=== PATIENT | female | born 1945 | race Two or more races ===

== ENCOUNTER 2016-02-18 11:44 | Inpatient (IN) | payer OTHER ==
[2016-02-18 12:49] VITALS: BMI 28.3
[2016-02-18] MEDS ORDERED: ACETAMINOPHEN 500 MG TABLET (FP) PO ONE (14:36)
[2016-02-18] MEDS ORDERED: SODIUM CHLORIDE 0.9% 1000 ML INFUS.BAG IV STA (14:39)
[2016-02-18] MEDS ORDERED: ACETAMINOPHEN 500 MG TABLET (FP) ONE (15:21)
--- NOTE | 2016-02-18 15:23 | PDOC ---
History of Present Illness - General Chief Complaint: Rash Stated Complaint: PCP SENT, RASH ON BOTH LEGS Time Seen by Provider: 02/18/16 13:54 History Source: Patient Exam Limitations: No Limitations - History of Present Illness Initial Comments: 02/18/16 15:17 70 yr female sent to ER for admission by to Dr. Emiliano Roberts. Pt has hitory of DM, high cholesterol, HTN presents with fever for 4 days 102, 102 max at home , redness to elbows with swelling and bite zuñiga to lower ankles and right knee. Pt denies exposure to any insect bites, no sick contacts or foreign travel. Pt has cough since 02/10/16. Denies abd pain denies sore throat or eye pain, no discharge. 02/18/16 17:26 Severity: Yes: moderate Location: reports: extremities Respiratory Risk Factors: reports: no cause identified Associated Symptoms: reports: fever, malaise, rash Past History - Past Medical History Allergies/Adverse Reactions: Allergies Allergy/AdvReac Type Severity Reaction Status Date / Time No Known Allergies Allergy Verified 02/18/16 12:44 Home Medications: Ambulatory Orders Amlodipine Besylate/Benazepril [Lotrel 5-40 mg Capsule] 1 each PO DAILY #0 capsule 05/07/12 Aspirin [ASA -] 81 mg PO DAILY #0 tab.chew 05/07/12 Metformin HCl [Glucophage -] 500 mg PO BID #0 02/20/16 Acetaminophen [Tylenol -] 1,000 mg PO Q6H 02/21/16 Diabetes: Yes HTN: Yes Hypercholesterolemia: Yes Suicide Attempt (Hx): No - Surgical History Cholecystectomy: Yes - Family Disease History Comment:: 02/18/16 15:20 none known - Psycho/Social/Smoking Cessation Hx Anxiety: No Suicidal Ideation: No Smoking Status: No Smoking History: Never smoked Number of Cigarettes Smoked Daily: 0 Hx Alcohol Use: No Drug/Substance Use Hx: No Substance Use Type: None Review of Systems - Review of Systems Able to Perform ROS?: Yes Is the patient limited Belarusian proficient: No Constitutional: Yes: Symptoms Reported, Fever HEENTM: No: Symptoms Reported Respiratory: Yes: Symptoms reported, Cough Cardiac (ROS): No: Symptoms Reported Integumentary: Yes: Symptoms Reported, See HPI, Rash Neurological: No: Symptoms reported *Physical Exam - Vital Signs Last Vital Signs Temp Pulse Resp BP Pulse Ox 100 F H 99 H 18 158/80 98 02/18/16 12:44 02/18/16 12:44 02/18/16 12:44 02/18/16 12:44 02/18/16 12:44 - Physical Exam General Appearance: Yes: Nourished, Appropriately Dressed HEENT: positive: EOMI, [place]RA[place], Normal ENT Inspection, TMs Normal, Pharynx Normal, Other (neg conunctival erythema ) Neck: positive: Supple. negative: Tender, Stridor Respiratory/Chest: positive: Lungs Clear, Normal Breath Sounds. negative: Respiratory Distress Cardiovascular: positive: Regular Rhythm, Regular Rate Gastrointestinal/Abdominal: positive: Normal Bowel Sounds, Soft Musculoskeletal: positive: Normal Inspection Extremity: positive: Normal Capillary Refill, Normal Inspection, Normal Range of Motion, Erythema (bilateral elbows ) Integumentary: positive: Rash Neurologic: positive: Fully Oriented, Alert, Normal Mood/Affect, Normal Response , Motor Strength 5/5 Heart Score/ECG Review - ECG Intrepretation Rhythm: Regular Rhythm - ECG Impressions Normal ECG: Yes Comment:: 02/18/16 17:36 signed by ER attending, NSR no chest pain or SOB ED Treatment Course - LABORATORY CBC & Chemistry Diagram: 02/20/16 01:00 02/18/16 20:00 - RADIOLOGY Radiology Studies Ordered: Category Date Time Status CHEST X-RAY PORTABLE* [RAD] Stat Radiology 02/18/16 14:39 Ordered Medical Decision Making - Medical Decision Making 02/18/16 15:21 cc: fever, chills, erythematous multiple small pinpoint erythematous zuñiga to bilateral ankles, feet elbows with maculopapular pinpoint erythematous zuñiga , no abscess feels feverish and chills will check labs 02/18/16 16:34 will admit to , Amir 02/18/16 17:07 discussed with will admit. will consult and . 02/18/16 17:25 case discussed with in Main ER, EKG NSR . Aware of troponin 0.25. no STEMI. EKG nsr, pt has no chest pain . 02/18/16 17:25 spoke with will consult on the patient. 02/18/16 17:34 02/18/16 17:36 02/18/16 18:34 *DC/Admit/Observation/Transfer Diagnosis at time of Disposition: Fever Qualifiers: Fever type: unspecified Qualified Code(s): R50.9 - Fever, unspecified - Discharge Dispostion Disposition: HOME Admit: Yes - Referrals
[2016-02-18 15:40] LABS: BASOPHIL 0.6 % (0-2.0); EOSINOPHIL 0.6 % (0-4.5); MCH 28.3 pg (25.7-33.7); MCHC 32.7 g/dl (32.0-36.0); MEAN CELL VOLUME 86.6 fl (80-96); MEAN PLT VOLUME 9.6 fl (7.5-11.1); NEUTROPHILS 76.5 % (42.8-82.8); PLATELET COUNT 336 K/MM3 (134-434); RDW 13.1 % (11.6-15.6); WHITE BLOOD COUNT 9.5 K/mm3 (4.0-10.0)
[2016-02-18 15:55] LABS: URINE APPEARANCE CLEAR; URINE BILIRUBIN NEGATIVE (NEGATIVE); URINE COLOR YELLOW; URINE GLUCOSE (UA) NEGATIVE (NEGATIVE); URINE KETONE TRACE (NEGATIVE); URINE LEUK ESTERASE NEGATIVE (NEGATIVE); URINE NITRITE NEGATIVE (NEGATIVE); URINE PROTEIN NEGATIVE (NEGATIVE); URINE UROBILINOGEN 2.0 E.U/dl E.U./dl (0.2-1.0)
[2016-02-18 16:03] LABS: INR 1.33 (0.82-1.09); PROTHROMBIN TIME (PATIENT) 14.7 SEC (9.98-11.88)
[2016-02-18 16:06] LABS: ACTIVATED PTT 27.3 SECONDS (26.9-34.4)
[2016-02-18 16:08] LABS: URINE BLOOD 1+ (NEGATIVE)
[2016-02-18 16:12] LABS: ALBUMIN 3.3 g/dl (3.4-5.0); ANION GAP 12 (8-16); BILIRUBIN,TOTAL 0.7 mg/dL (0.2-1.0); C-REACTIVE PROTEIN 7.1 MG/DL (0.00-0.3); CALCIUM 8.3 mg/dL (8.5-10.1); CO2 26 mmol/L (21-32); CREATININE 0.5 mg/dL (0.55-1.02); GLUCOSE,RANDOM 128 mg/dL (74-106); SGOT/AST 34 U/L (15-37); SGPT/ALT 73 U/L (12-78); TOT PROT 7.2 g/dl (6.4-8.2)
[2016-02-18 16:14] LABS: URINE MUCUS RARE; URINE RBC 2 /hpf (0-3); URINE WBC 1 /hpf (3-5)
[2016-02-18 16:15] LABS: ALK PHOS 157 U/L (45-117); TROPONIN I 0.25 ng/ml (0.00-0.05)
[2016-02-18] MEDS ORDERED: methylPREDNISolone NA SUCC 125 MG/2 ML VIAL IVPB ONE (17:03)
[2016-02-18] MEDS ORDERED: methylPREDNISolone NA SUCC 40 MG/1 ML VIAL IVPB ONE (17:08)
[2016-02-18] MEDS ORDERED: diphenhydrAMINE HCL 25 MG CAPSULE (FP) PO PRN (18:27)
[2016-02-18] MEDS ORDERED: ALBUTEROL SO4 2.5/IPRATROPIUM 0.5 INH SOL 3 ML VIAL.NEB. NEB PRN (18:29)
[2016-02-18] MEDS ORDERED: LEVOFLOXACIN 500 MG IVPB 100 ML IVPB SCH (18:30)
[2016-02-18] MEDS ORDERED: LEVOFLOXACIN 500 MG IVPB 100 ML IVPB ONE (18:34)
[2016-02-18] MEDS ORDERED: methylPREDNISolone NA SUCC 40 MG/1 ML VIAL ONE (18:34)
[2016-02-18 20:46] LABS: ALBUMIN 2.6 g/dl (3.4-5.0); ANION GAP 9 (8-16); BILIRUBIN,TOTAL 0.6 mg/dL (0.2-1.0); CALCIUM 7.5 mg/dL (8.5-10.1); CO2 26 mmol/L (21-32); CREATININE 0.5 mg/dL (0.55-1.02); GLUCOSE,RANDOM 247 mg/dL (74-106); SGOT/AST 30 U/L (15-37); SGPT/ALT 62 U/L (12-78); TOT PROT 6.1 g/dl (6.4-8.2)
[2016-02-18 20:48] LABS: ALK PHOS 134 U/L (45-117); TROPONIN I 0.23 ng/ml (0.00-0.05)
[2016-02-19] MEDS ORDERED: methylPREDNISolone NA SUCC 40 MG/1 ML VIAL IVPB SCH (02:00)
--- NOTE | 2016-02-19 09:08 | PN ---
Progress Note, Physician Chief Complaint: ID Febrile over the last week with polyarticuliar joint pains and areas of erythema in the shins and elbows. Known diabetic and Hypertensive No travel HIV risks couph Had sweats fever and nausea at home. No abd pain - Current Medication List Current Medications: Active Medications Acetaminophen (Tylenol -) 650 mg PO Q6H PRN PRN Reason: FEVER OR PAIN Albuterol/Ipratropium (Duoneb -) 1 amp NEB Q6H PRN PRN Reason: SHORTNESS OF BREATH Amlodipine Besylate (Norvasc -) 5 mg PO DAILY [facility] Diphenhydramine HCl (Benadryl -) 25 mg PO Q6H PRN PRN Reason: FOR ITCHING Levofloxacin (Levaquin 500 Mg Premixed Ivpb -) 100 mls @ 100 mls/hr IVPB DAILY [facility] Last Admin: 02/18/16 18:50 Dose: 100 mls/hr Methylprednisolone Sodium Succinate (Solu-Medrol -) 40 mg IVPB Q8H-IV [facility] Last Admin: 02/19/16 01:35 Dose: 40 mg Valsartan (Diovan -) 160 mg PO DAILY [facility] - Objective Vital Signs: Vital Signs Temperature 98.4 F 02/19/16 06:00 Pulse Rate 72 02/19/16 06:00 Respiratory Rate 20 02/19/16 06:00 Blood Pressure 155/84 02/19/16 06:00 O2 Sat by Pulse Oximetry (%) 97 02/18/16 21:10 Constitutional: Yes: Well Nourished, No Distress Neck: Yes: WNL, Supple Cardiovascular: Yes: S1, S2. No: Murmur Respiratory: Yes: WNL, Regular, CTA Bilaterally Gastrointestinal: Yes: Soft Integumentary: Yes: Other (Tneder raised plaques shinls elbow symmetrically) Labs: CBC, BMP 02/18/16 20:00 INR, PTT INR 1.33 (0.82-1.09) H 02/18/16 15:10 Problem List - Problems (1) Erythema nodosum Code(s): L52 - ERYTHEMA NODOSUM (2) Fever Code(s): R50.9 - FEVER, UNSPECIFIED Qualifiers: Fever type: unspecified Qualified Code(s): R50.9 - Fever, unspecified Assessment/Plan Laboratory Tests 0102/18/16 02/18/16 15:10 15:10 15:10 WBC 9.5 D Hgb 13.3 D Plt Count 336 D ESR INR 1.33 H Creatinine Creat Clearance w eGFR Random Glucose AST ALT Alkaline Phosphatase C-Reactive Protein Urine RBC 2 Urine WBC 1 02/18/16 02/18/16 02/18/16 15:10 15:10 20:00 WBC Hgb Plt Count ESR 77 H INR Creatinine 0.5 L Creat Clearance w eGFR > 60 Random Glucose 247 H D AST 30 ALT 62 Alkaline Phosphatase 157 H 134 H C-Reactive Protein 7.1 H Urine RBC Urine WBC Assessment Erythema Nodosum with fever Pulmonary adenopathy Consider Sarcoidosis Plan Stop all antibiotics and steroids for now Rheumatology evaluation Pulmonary evaluation Luana DUNN
[2016-02-19] MEDS ORDERED: POTASSIUM CHLORIDE TABS 20 MEQ TABLET.ER (FP) PO ONE (09:47)
--- NOTE | 2016-02-19 09:56 | HP ---
Admitting History and Physical - Primary Care Physician PCP: Sarthak Roberts - Admission Chief Complaint: FEVER/RASH/PULM INFILTRATE History of Present Illness: SENT FROM [facility] PMD DR GRAHAMS FFICE FOR FEVER/RASH/COUGH, FOUND TO HAVE INFILTRATE VS EFFUSSION ON CXR, CT SCAN LUNGS SHOWS NODULES R/O SARCOIDOSIS. History Source: Patient - Past Medical History Cardiovascular: Yes: HTN Pulmonary: Yes: Asthma - Smoking History Smoking history: Never smoked Aproximately how many cigarettes per day: 0 - Alcohol/Substance Use Hx Alcohol Use: No Home Medications - Allergies Allergies/Adverse Reactions: Allergies Allergy/AdvReac Type Severity Reaction Status Date / Time No Known Allergies Allergy Verified 02/18/16 12:44 - Home Medications Home Medications: Ambulatory Orders Amlodipine Besylate/Benazepril [Lotrel 5-40 mg Capsule] 1 each PO DAILY #0 capsule 05/07/12 Aspirin [ASA -] 81 mg PO DAILY #0 tab.chew 05/07/12 Metformin HCl [Glucophage -] 500 mg PO BID 02/18/16 Review of Systems Findings/Remarks: AWAKE ALERT MILD DISTRESS - Review of Systems Constitutional: reports: Malaise Eyes: reports: No Symptoms HENT: reports: No Symptoms Neck: reports: No Symptoms Cardiovascular: reports: No Symptoms Respiratory: reports: Cough, SOB Gastrointestinal: reports: No Symptoms Genitourinary: reports: No Symptoms Musculoskeletal: reports: Joint Pain, Muscle Weakness Integumentary: reports: Erythema, Rash Neurological: reports: No Symptoms Endocrine: reports: No Symptoms Hematology/Lymphatic: reports: No Symptoms Psychiatric: reports: No Symptoms Physical Examination Vital Signs: Vital Signs Temperature 97.1 F L 02/19/16 09:39 Pulse Rate 71 02/19/16 09:39 Respiratory Rate 20 02/19/16 09:39 Blood Pressure 153/77 02/19/16 09:39 O2 Sat by Pulse Oximetry (%) 97 02/18/16 21:10 Constitutional: Yes: Mild Distress Eyes: Yes: WNL HENT: Yes: WNL Neck: Yes: WNL Cardiovascular: Yes: WNL Respiratory: Yes: WNL Gastrointestinal: Yes: WNL Renal/: Yes: WNL Musculoskeletal: Yes: Joint Stiffness, Muscle Weakness Extremities: Yes: Erythema Edema: No Peripheral Pulses WNL: Yes Integumentary: Yes: Rash Wound/Incision: Yes: Dressing Dry and Intact, Dressing Removed Neurological: Yes: WNL ...Motor Strength: LLE, RLE Psychiatric: Yes: WNL Labs: CBC, BMP 02/18/16 20:00 Imaging - Results Chest X-ray: Report Reviewed Cat Scan: Report Reviewed Problem List - Problems (1) Erythema nodosum Code(s): L52 - ERYTHEMA NODOSUM (2) Fever Code(s): R50.9 - FEVER, UNSPECIFIED Qualifiers: Fever type: unspecified Qualified Code(s): R50.9 - Fever, unspecified (3) Acute arthritis Code(s): M19.90 - UNSPECIFIED OSTEOARTHRITIS, UNSPECIFIED SITE (4) Lung abnormality Assessment/Plan: CT SCAN + NODULES VS NEOPLASM?? PULMONARY EVAL Code(s): J98.4 - OTHER DISORDERS OF LUNG Assessment/Plan BLOOD AND URINE CULTURES ESR/CRP ELEVATED ERYTHEMA NODOSUM VA AUTO IMMUNE VASCULITIS RHEUMATOLOGY EVAL STEROIDS IV PAIN CONTROL IV ABX PULM NODULES--- SARCOIDOSIS VS OTHER PULMONARY EVAL
[2016-02-19] MEDS ORDERED: amLODIPine BESYLATE 5 MG TABLET (FP) PO SCH (10:00)
[2016-02-19] MEDS: VALSARTAN 160 MG TABLET (UD) PO SCH (10:00)
--- NOTE | 2016-02-19 10:24 | CONS ---
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 She has no history of recent travel, and in the emergency room was treated with Levaquin and Solu-Medrol for possible pneumonia and/or inflammatory disease. She has previously had some diarrhea earlier in the week associated with abdominal discomfort and nausea, but this has mostly subsided. She notes that she recently had a steroid injection in her left knee by Dr. Rouse for osteoarthritis. She has no history of rheumatoid arthritis and denies any cough, shortness of breath, diarrhea currently, or joint swelling. She works in the [employer] and has no history of recent travel. She lives with her , for 50 years. No one at home is sick. A CAT scan of the chest was obtained to evaluate some atelectasis and/ or infiltrate seen on chest x-ray. This showed no infiltrate but some small pulmonary nodules and small mediastinal lymph nodes. PAST MEDICAL HISTORY: As noted above. MEDICATIONS: 1. Amlodipine. 2. Aspirin. 3. Percocet p.r.n. ALLERGIES: None known. SOCIAL HISTORY: Never smoked, no history of substance abuse. HIV status unknown. FAMILY HISTORY: Reviewed and noncontributory. REVIEW OF SYSTEMS: Respiratory: No cough, shortness of breath, hemoptysis. Cardiac: No chest pain, palpitations, murmur. Gastrointestinal: Previous abdominal discomfort with nausea and diarrhea, now subsided. Genitourinary: No dysuria, hematuria, urinary frequency. PHYSICAL EXAMINATION: General: She was an alert female. Vital Signs: Her temperature max was 100, pulse 99, respirations 18, blood pressure 158/80, oximetry 98%. Neck: Supple, without adenopathy. Lungs: Clear to P and A. Heart: S1, S2, regular rhythm without audible murmur or gallop. Abdomen: Positive bowel sounds, soft, nontender, without hepatosplenomegaly. Extremities: Reveal raised nodules on the lower shins bilaterally, with similar raised nodules above the left knee and both elbows. No joint swelling was noted. LABORATORY: The white count was 9.5, hemoglobin 13.3, platelets of 336, sedimentation rate of 77, INR 1.3, BUN 7, creatinine 0.5, glucose 247, alkaline phosphatase 134. CRP is 7.1. Urine with 2 RBCs, [address] scan was reviewed, shows bilateral pulmonary nodules measuring up to 9 mm, with mediastinal lymph nodes measuring up to 1.2 cm, rule out malignancy per the note. Enlarged mnan. ASSESSMENT: A 69-year-old female, diabetic, presents with fever and clinical findings consistent with erythema nodosum. Etiology of erythema nodosum at this point unclear; however, given the adenopathy with pulmonary nodules, the possibility of sarcoidosis is considered. At this point I would not cloud the picture by giving her corticosteroids and antibiotics. She should have a rheumatology consult and a pulmonary consult to see her with regard to the mediastinal lymph nodes and nodules and assess the need for possible mediastinal lymph node biopsy. 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 SIGRID DELGADO M.D. [id number] MTDD
--- NOTE | 2016-02-19 11:03 | EKG ---
Test Reason : Blood Pressure : / mmHG Vent. Rate : 074 BPM Atrial Rate : 074 BPM P-R Int : 152 ms QRS Dur : 074 ms QT Int : 378 ms P-R-T Axes : 010 023 010 degrees QTc Int : 419 ms NORMAL SINUS RHYTHM NORMAL ECG WHEN COMPARED WITH ECG OF 18-NOV-2009 10:34, NO SIGNIFICANT CHANGE WAS FOUND Confirmed by ROXI FORBES MD ([id number]) on 02/19/2016 11:03:19 AM Referred By: Confirmed By:ROXI FORBES MD
--- NOTE | 2016-02-19 15:10 | PN ---
Progress Note (short form) - Note Progress Note: PULMONARY CONSULTATION DICTATED 02/19/16 IMP LIKELY SARCOIDOSIS ,+MEDIASTINAL ADENOPATHY,BILATERAL PULMONARY NODULES, ERYTHEMA NODOSUM,R/O INFECTIOUS,RHEUMATOLOGIC,VASCULITIS HTN DM PLAN SEROLOGY,BRITNEY LEVEL THORACIC SURGERY EVALUATION FOR POSSIBLE MEDIASTINOSCOPY ANTIBIOTICS PER ID CULTURES DR BRUNNER Problem List - Problems (1) Acute arthritis Code(s): M19.90 - UNSPECIFIED OSTEOARTHRITIS, UNSPECIFIED SITE (2) Erythema nodosum Code(s): L52 - ERYTHEMA NODOSUM (3) Fever Code(s): R50.9 - FEVER, UNSPECIFIED Qualifiers: Fever type: unspecified Qualified Code(s): R50.9 - Fever, unspecified (4) Lung abnormality Code(s): J98.4 - OTHER DISORDERS OF LUNG (5) Mediastinal adenopathy Code(s): R59.0 - LOCALIZED ENLARGED LYMPH NODES (6) Pulmonary nodules/lesions, multiple Code(s): R91.8 - OTHER NONSPECIFIC ABNORMAL FINDING OF LUNG FIELD
--- NOTE | 2016-02-19 16:31 | CONS ---
DATE OF CONSULTATION: 02/19/2016 REFERRING PHYSICIAN: Sarthak Roberts MD The patient is a 70-year-old [place] female. Past medical history of hypertension, mgg-xqmyfuw-xnerjpwym diabetes mellitus, nonsmoker. Admitted to [facility] with complaint of a 1-week history of generalized arthralgias associated with fever, an erythematous rash on both elbows and her lower extremities. The patient denies any recent insect bites. There is no recent travel. In the emergency room, she was treated with Levaquin and Solu-Medrol for possible pneumonia versus inflammatory disease. She underwent a CT scan of the chest which revealed bilateral small pulmonary nodules and a mediastinal adenopathy. She denies any visual disturbances. Denies any history of occupational exposure to chemicals or fumes. Denies any family history of sarcoid, although has a family history of lung cancer. She denies any recent travel. Denied weight loss or night sweats. She denies hemoptysis. PAST MEDICAL HISTORY: Again, includes hypertension, pvq-aiiuaro-iprtbrguo diabetes mellitus. REVIEW OF SYSTEMS: No orthopnea. No PND. No chest pain. No shortness of breath. Positive fever. Positive arthralgias. Positive skin rash. SOCIAL HISTORY: Currently employed at [employer]. Non-smoker. No EtOH. PHYSICAL EXAMINATION: General: The patient is a well-developed, well-nourished female, awake, alert, in no acute distress. Vital Signs: She is currently afebrile; blood pressure is 153/77; respiratory rate is 20; O2 saturation is 97% on room air. HEENT: Exam is normocephalic, atraumatic. Neck: Supple. Heart: Regular S1 and S2. Chest: Clear. Abdomen: Soft. Bowel sounds positive. Extremities: There is a rash noted on the lower extremities as well as around the knee and around the ankles. LABORATORIES: White blood cell count is 9.5, hemoglobin 13.3, hematocrit 40.7, and a platelet count of 336,000; the ESR is 77. INR is 1.33. Electrolytes: Potassium 3.3. Hemoglobin A1c is 6.2. Alkaline phosphatase is 134. CRP is 7.1. UA is positive for heme 1+. Immunologic: MCKAYLA is pending. Lyme screen is pending. Chest CT reveals bilateral pulmonary nodules measuring up to 9 mm with mediastinal lymph nodes measuring up to 1.2 and prominent pulmonary mann. IMPRESSION: Bilateral mediastinal adenopathy, hilar adenopathy, erythema nodosum, generalized rash, and pulmonary nodules. Rule out possible sarcoidosis. Rule out other inflammatory etiologies or other rheumatologic etiologies. Rule out possible malignancy. PLAN: Would obtain level, a rheumatologic workup, as well as a thoracic surgical evaluation for mediastinoscopy. RAGHU BRUNNER M.D. JOHANN/[id number]
--- NOTE | 2016-02-19 19:10 | CONSULT ---
Consult - text type - Consultation Consultation Note: Thoracic Surgery Consult: Pt seen/examined. Briefly has an acute febrile presentation with dyspnea and erythema nodosum. PMH/PSH significant for DM, HTN, cholecystectomy. No malignancy hx. Normal colonoscopies. No weight loss or hemoptysis. On PE, normal vitals now, looks well, no palpable lymphadenopathy. CT showed mediastinal adenopathy and bilateral small nodules. Diff Dx: Sarcoid vs. Autoimmune/Inflammarory vs. Metastatic Cancer Plan: - Will defer to consultations by Dr. Avina and Rheumatology (to see tomorrow) ; - If recommended, will offer c-med and/or lung biopsy--she is good candidate for both. - I have spent 40 minutes on this consultation with >50% of this involving counseling and coordination of care including reviewing h/p, imaging, and discussion with other physicians.
[2016-02-19] MEDS: ACETAMINOPHEN 325 MG TABLET (FP) PO PRN (22:26)
[2016-02-19 22:37] LABS: TROPONIN I 0.17 ng/ml (0.00-0.05)
[2016-02-20 00:40] LABS: VENOUS BLOOD GAS HCO3 24.8 meq/L (22-29); VENOUS PH 7.48 (7.31-7.41)
[2016-02-20 01:15] LABS: BASOPHIL 0.5 % (0-2.0); EOSINOPHIL 0.6 % (0-4.5); MCH 28.4 pg (25.7-33.7); MCHC 32.5 g/dl (32.0-36.0); MEAN CELL VOLUME 87.3 fl (80-96); MEAN PLT VOLUME 9.8 fl (7.5-11.1); NEUTROPHILS 81.5 % (42.8-82.8); PLATELET COUNT 371 K/MM3 (134-434); WHITE BLOOD COUNT 10.9 K/mm3 (4.0-10.0)
[2016-02-20] MEDS ORDERED: cefTRIAXone 1 GM/50 ML BAG (PRE-DOCKED) IVPB ONE (01:15)
[2016-02-20 02:16] LABS: ERYTHROCYTE SEDIMENTATION RATE 43 mm/hr (0-30)
[2016-02-20] MEDS: amLODIPine BESYLATE 5 MG TABLET (FP) PO ONE ×2 (02:37→02:51)
[2016-02-20] MEDS: ACETAMINOPHEN 325 MG TABLET (FP) PO PRN (06:06)
--- NOTE | 2016-02-20 08:56 | PN ---
Physical Exam: SUBJECTIVE: Patient seen and examined at bed side this morning. No new complaints this am. Feels good. Overnight, patient said she had fever+ associated with sweating, no chills/rigors, was given tylenol with relief. Bowel /Bladder habit normal. Sleep disturbed. Appetite Normal. OBJECTIVE: Vital Signs Period Temp Pulse Resp BP Sys/Alonzo Pulse Ox Last 24 Hr 97.1 F-99.2 F 71-93 14-20 127-153/77-86 97-98 GENERAL: The patient is awake, alert, and fully oriented, in no acute distress. HEAD: Normal with no signs of trauma. EYES: PEERLA, EOM intact, no pallor or icterus. ENT: Ears normal NECK: Supple. LUNGS: Breath sounds equal, clear to auscultation bilaterally, no wheezes, no crackles, no accessory muscle use. HEART: Regular rate and rhythm, S1, S2 without murmur, rub or gallop. ABDOMEN: Soft, nontender, nondistended, normoactive bowel sounds, no guarding, no rebound, no hepatosplenomegaly, no masses. EXTREMITIES: 2+ pulses, warm, well-perfused, no edema. NEUROLOGICAL: Cranial nerves II through XII grossly intact. Normal speech, gait normal. PSYCH: Normal mood, normal affect. SKIN: Tender, reddish, nodular lesions over the lower extremities and B/L elbows. Warm, dry, normal turgor. Laboratory Results - last 24 hr 02/19/16 02/19/16 02/19/16 10:00 11:45 17:15 WBC RBC Hgb Hct MCV MCHC RDW Plt Count MPV Neutrophils % Lymphocytes % Monocytes % Eosinophils % Basophils % ESR VBG pH POC VBG pCO2 POC VBG pO2 POC Glucometer 228 216 Hemoglobin A1c % 6.2 H D Creatine Kinase Troponin I C-Reactive Protein 02/19/16 02/20/16 02/20/16 22:00 00:00 00:35 WBC RBC Hgb Hct MCV MCHC RDW Plt Count MPV Neutrophils % Lymphocytes % Monocytes % Eosinophils % Basophils % ESR VBG pH 7.48 H POC VBG pCO2 33.3 L POC VBG pO2 67.0 H POC Glucometer Hemoglobin A1c % Creatine Kinase 66 Troponin I 0.17 H C-Reactive Protein 4.6 H D 01/05/17 01/05/17 01/05/17 01:00 03:52 06:18 WBC 10.9 H RBC 4.46 Hgb 12.7 Hct 39.0 MCV 87.3 MCHC 32.5 RDW 13.0 Plt Count 371 MPV 9.8 Neutrophils % 81.5 Lymphocytes % 10.9 D Monocytes % 6.5 Eosinophils % 0.6 Basophils % 0.5 ESR 43 H VBG pH POC VBG pCO2 POC VBG pO2 POC Glucometer 129 148 Hemoglobin A1c % Creatine Kinase Troponin I C-Reactive Protein Active Medications Generic Name Dose Route Start Last Admin Trade Name Freq PRN Reason Stop Dose Admin Acetaminophen 650 mg 02/18/16 18:27 02/20/16 06:06 Tylenol - PO 650 mg Q6H PRN Administration FEVER OR PAIN Albuterol/Ipratropium 1 amp 02/18/16 18:29 Duoneb - NEB Q6H PRN SHORTNESS OF BREATH Amlodipine Besylate 10 mg 02/20/16 10:00 Norvasc - PO DAILY SHERIDAN Diphenhydramine HCl 25 mg 02/18/16 18:27 Benadryl - PO Q6H PRN FOR ITCHING Valsartan 160 mg 02/19/16 10:00 02/19/16 10:00 Diovan - PO 160 mg DAILY SHERIDAN Administration 02/18/2016 CT Chest: Bilateral pulmonary nodules measuring upto 9mm. Mediastinal lymph nodes measuring up to 1.2 cm. R/O Malignancy. ASSESSMENT/PLAN: 70 year old female with significant past medical history of HTN, HLD presented to the ED with cough/rash/fever. # Fever/cough/rash- Possible Sarcoidosis -Tmax- 100 F -Cough resolved -Rash still persists -CT chest report mentioned above - Clinical symptoms and Chest CT- suggestive of possible Sarcoidosis - Plan: Biopsy of lymph nodes - Currently off antibiotics and steroids # FEN -Not on IV Fluids -Electrolytes WNL -Sodium controlled diet # Prophylaxis - For DVT- Not indicated -For GI-Not indicated Illness, Investigation and plan of care explained to the patient. She verbalized understanding. Case will be discussed with Dr. Craft. Thank you for the consultative opportunity. Visit type - Emergency Visit Emergency Visit: Yes ED Registration Date: 02/18/16 Care time: The patient presented to the Emergency Department on the above date and was hospitalized for further evaluation of their emergent condition. - New Patient This patient is new to me today: No - Critical Care Critical Care patient: No
[2016-02-20] MEDS ORDERED: amLODIPine BESYLATE 10 MG TABLET (FP) PO SCH (10:00)
[2016-02-20] MEDS: VALSARTAN 160 MG TABLET (UD) PO SCH (10:33)
[2016-02-20 10:35] VITALS: TEMP 98.1
--- NOTE | 2016-02-20 10:53 | PN ---
Progress Note, Physician Chief Complaint: ID Nontoxic appearing Minimal fever - Current Medication List Current Medications: Active Medications Acetaminophen (Tylenol -) 650 mg PO Q6H PRN PRN Reason: FEVER OR PAIN Last Admin: 02/20/16 06:06 Dose: 650 mg Albuterol/Ipratropium (Duoneb -) 1 amp NEB Q6H PRN PRN Reason: SHORTNESS OF BREATH Amlodipine Besylate (Norvasc -) 10 mg PO DAILY [facility] Last Admin: 02/20/16 10:33 Dose: 10 mg Diphenhydramine HCl (Benadryl -) 25 mg PO Q6H PRN PRN Reason: FOR ITCHING Valsartan (Diovan -) 160 mg PO DAILY [facility] Last Admin: 02/20/16 10:33 Dose: 160 mg - Objective Vital Signs: Vital Signs Temperature 98.1 F 02/20/16 10:34 Pulse Rate 90 02/20/16 10:34 Respiratory Rate 20 02/20/16 10:34 Blood Pressure 168/90 02/20/16 10:34 O2 Sat by Pulse Oximetry (%) 98 02/19/16 21:00 Constitutional: Yes: Well Nourished, No Distress Neck: Yes: WNL, Lymphadenopathy, Other (Left cervical node nontender) Respiratory: Yes: WNL, Regular, CTA Bilaterally Gastrointestinal: Yes: WNL, Normal Bowel Sounds, Soft Integumentary: Yes: Other (Nodules forearm shins) Labs: CBC, BMP 02/20/16 01:00 02/18/16 20:00 INR, PTT INR 1.33 (0.82-1.09) H 02/18/16 15:10 Problem List - Problems (1) Erythema nodosum Code(s): L52 - ERYTHEMA NODOSUM (2) Fever Code(s): R50.9 - FEVER, UNSPECIFIED Qualifiers: Fever type: unspecified Qualified Code(s): R50.9 - Fever, unspecified Assessment/Plan Microbiology 02/18/16 15:10 Urine - Urine Clean Catch Urine Culture - Final NO GROWTH OBTAINED 02/18/16 15:10 Blood - Peripheral Venous Blood Culture - Preliminary NO GROWTH OBTAINED AFTER 24 HOURS, INCUBATION TO CONTINUE FOR 4 DAYS. 02/18/16 15:10 Blood - Peripheral Venous Blood Culture - Preliminary NO GROWTH OBTAINED AFTER 24 HOURS, INCUBATION TO CONTINUE FOR 4 DAYS. Laboratory Tests 02/20/16 01:00 WBC 10.9 H Hgb 12.7 Hct 39.0 Plt Count 371 Assessment E Nodosum possible Sarcoidosis Need to rule out TB Plan Lymph node biopsy with cultures C/S AFB and Fungi Luana DUNN
--- NOTE | 2016-02-20 11:20 | PN ---
Progress Note, Physician Chief Complaint: AWAKE ALERT NAD AWAITING FOR CTS TO BIOPSY LUNG NODULES - Current Medication List Current Medications: Active Medications Acetaminophen (Tylenol -) 650 mg PO Q6H PRN PRN Reason: FEVER OR PAIN Last Admin: 02/20/16 06:06 Dose: 650 mg Albuterol/Ipratropium (Duoneb -) 1 amp NEB Q6H PRN PRN Reason: SHORTNESS OF BREATH Amlodipine Besylate (Norvasc -) 10 mg PO DAILY [facility] Last Admin: 02/20/16 10:33 Dose: 10 mg Diphenhydramine HCl (Benadryl -) 25 mg PO Q6H PRN PRN Reason: FOR ITCHING Valsartan (Diovan -) 160 mg PO DAILY [facility] Last Admin: 02/20/16 10:33 Dose: 160 mg - Objective Vital Signs: Vital Signs Temperature 98.1 F 02/20/16 10:34 Pulse Rate 90 02/20/16 10:34 Respiratory Rate 20 02/20/16 10:34 Blood Pressure 168/90 02/20/16 10:34 O2 Sat by Pulse Oximetry (%) 98 02/19/16 21:00 Constitutional: Yes: No Distress Eyes: Yes: WNL HENT: Yes: WNL Neck: Yes: WNL Cardiovascular: Yes: WNL Respiratory: Yes: WNL Gastrointestinal: Yes: WNL Genitourinary: Yes: WNL Musculoskeletal: Yes: WNL Extremities: Yes: WNL Edema: No Peripheral Pulses WNL: Yes Integumentary: Yes: Rash Wound/Incision: Yes: Clean/Dry Neurological: Yes: WNL ...Motor Strength: WNL Psychiatric: Yes: WNL Labs: CBC, BMP 02/20/16 01:00 02/18/16 20:00 INR, PTT INR 1.33 (0.82-1.09) H 02/18/16 15:10 Problem List - Problems (1) Erythema nodosum Code(s): L52 - ERYTHEMA NODOSUM (2) Fever Code(s): R50.9 - FEVER, UNSPECIFIED Qualifiers: Fever type: unspecified Qualified Code(s): R50.9 - Fever, unspecified (3) Acute arthritis Code(s): M19.90 - UNSPECIFIED OSTEOARTHRITIS, UNSPECIFIED SITE (4) Lung abnormality Code(s): J98.4 - OTHER DISORDERS OF LUNG Assessment/Plan AWAITING FOR LUG BIOPSY WITH CTS ABX IV PULMONARY AND ID EVAL APPRECIATED OOB TO CHAIR CAN DC HOME AND BIOPSY OUTPATIENT IF CTS TO SCHEDULE AT LATER DATE.
--- NOTE | 2016-02-20 12:43 | CONSULT ---
Consult Consult Specialty:: Rheumatology - History of Present Illness History of Present Illness: 70-year-old female with history of medical history of hypertension, non-insulin- dependent diabetes mellitus, nonsmoker, admitted with skin rash in legs and arms , general malaise and fever. HPI Six days ago the patient developed a slighltly tender rash in legs and left arm characterized by 5 cm nodules. She also developed non quantified fever with chills and general malaise that improved with Ibuprofen PRN. She denies arthralgia, cough, shortness of breath, hemoptysis, weight loss, red eyes or abdominal pain. The patient works at [employer] and she denies recent travel. A CT scan of the chest was reported with bilateral pulmonary nodules measuring up to 9 mm, mediastinal nodes measuring 1.2 cm and enlarged mann. On admission her temperature was 100, she was started on Solu- Medrol 40 mg Q 8 hours which was later discontinued and Levaquin that was changed to Rocephin. Since admission she has not have fever. - History Source History Provided By: Patient Limitations to Obtaining History: No Limitations - Past Medical History Cardio/Vascular: Yes: HTN Pulmonary: Yes: Asthma - Alcohol/Substance Use Hx Alcohol Use: No - Smoking History Smoking history: Never smoked Aproximately how many cigarettes per day: 0 Home Medications - Allergies Allergies/Adverse Reactions: Allergies Allergy/AdvReac Type Severity Reaction Status Date / Time No Known Allergies Allergy Verified 02/18/16 12:44 - Home Medications Home Medications: Ambulatory Orders Amlodipine Besylate/Benazepril [Lotrel 5-40 mg Capsule] 1 each PO DAILY #0 capsule 05/07/12 Aspirin [ASA -] 81 mg PO DAILY #0 tab.chew 05/07/12 Metformin HCl [Glucophage -] 500 mg PO BID 02/18/16 Review of Systems - Review of Systems Constitutional: reports: Malaise Eyes: reports: No Symptoms HENT: reports: No Symptoms Neck: reports: No Symptoms Cardiovascular: reports: No Symptoms Respiratory: reports: No Symptoms Gastrointestinal: reports: No Symptoms Genitourinary: reports: No Symptoms Musculoskeletal: reports: No Symptoms Integumentary: reports: Other (See HPI) Physical Exam Vital Signs: Vital Signs Temperature 98.1 F 02/20/16 10:34 Pulse Rate 90 02/20/16 10:34 Respiratory Rate 20 02/20/16 10:34 Blood Pressure 168/90 02/20/16 10:34 O2 Sat by Pulse Oximetry (%) 98 02/19/16 21:00 Constitutional: Yes: No Distress Eyes: Yes: WNL HENT: Yes: WNL Neck: Yes: WNL Cardiovascular: Yes: WNL Respiratory: Yes: WNL Gastrointestinal: Yes: WNL Musculoskeletal: Yes: Other (No active joints) Integumentary: Yes: Other (Few 5 cm slightly hyperpigmented nodules in arms and legs.) Labs: CBC, BMP 02/20/16 01:00 02/18/16 20:00 Laboratory Tests 02/18/16 02/18/16 02/18/16 15:10 15:10 20:00 ESR 77 H Calcium 7.5 L Total Bilirubin 0.6 AST 30 Creatine Kinase 44 Troponin I 0.23 H Albumin 2.6 L D Urine Color Yellow Urine Appearance Clear Urine pH 5.0 D Ur Specific [place] 1.017 Urine Protein Negative Urine Glucose (UA) Negative Urine Ketones Trace H Urine Blood 1+ H Urine Nitrite Negative Urine Bilirubin Negative Urine Urobilinogen 2.0 e.u/dl H Ur Leukocyte Esterase Negative Urine RBC 2 Urine WBC 1 02/20/16 01:00 ESR 43 H Calcium Total Bilirubin AST Creatine Kinase Troponin I Albumin Urine Color Urine Appearance Urine pH Ur Specific [place] Urine Protein Urine Glucose (UA) Urine Ketones Urine Blood Urine Nitrite Urine Bilirubin Urine Urobilinogen Ur Leukocyte Esterase Urine RBC Urine WBC Problem List - Problems (1) Sarcoidosis Assessment/Plan: Based on pulmonary nodules, hilar adenopathy, fever and probable erythema nodosum, 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 Even though the presentation is typical, I agree to obtain a mediastinal lymph node biopsy for diagnostic confirmation. I suggest to start Prednisone 10 mg daily and in case of relapse of fever, increase the dose as outpatient. Code(s): D86.9 - SARCOIDOSIS, UNSPECIFIED
--- NOTE | 2016-02-20 12:52 | PN ---
Progress Note (short form) - Note Progress Note: In the atrium with her daughter. Feels overall better. Intake & Output 02/17/16 02/18/16 02/19/16 02/20/16 23:59 23:59 23:59 23:59 Intake Total 200 1090 50 Balance 200 1090 50 Weight 150 lb Last Vital Signs Temp Pulse Resp BP Pulse Ox 98.1 F 90 20 168/90 98 02/20/16 10:34 02/20/16 10:34 02/20/16 10:34 02/20/16 10:34 02/19/16 21:00 Active Medications Acetaminophen (Tylenol -) 650 mg PO Q6H PRN PRN Reason: FEVER OR PAIN Last Admin: 02/20/16 06:06 Dose: 650 mg Albuterol/Ipratropium (Duoneb -) 1 amp NEB Q6H PRN PRN Reason: SHORTNESS OF BREATH Amlodipine Besylate (Norvasc -) 10 mg PO DAILY [facility] Last Admin: 02/20/16 10:33 Dose: 10 mg Diphenhydramine HCl (Benadryl -) 25 mg PO Q6H PRN PRN Reason: FOR ITCHING Valsartan (Diovan -) 160 mg PO DAILY [facility] Last Admin: 02/20/16 10:33 Dose: 160 mg Constitutional: Yes: No Distress Eyes: Yes: WNL HENT: Yes: WNL Neck: Yes: WNL Cardiovascular: Yes: WNL Respiratory: Yes: WNL Gastrointestinal: Yes: WNL Genitourinary: Yes: WNL Musculoskeletal: Yes: WNL Extremities: Yes: WNL Edema: No Peripheral Pulses WNL: Yes Integumentary: Yes: Rash Wound/Incision: Yes: Clean/Dry Neurological: Yes: WNL ...Motor Strength: WNL Psychiatric: Yes: WNL Labs: Laboratory Results - last 24 hr 02/19/16 02/19/16 02/20/16 17:15 22:00 00:00 WBC RBC Hgb Hct MCV MCHC RDW Plt Count MPV Neutrophils % Lymphocytes % Monocytes % Eosinophils % Basophils % ESR VBG pH POC VBG pCO2 POC VBG pO2 POC Glucometer 216 Creatine Kinase 66 Troponin I 0.17 H C-Reactive Protein 4.6 H D 02/20/16 02/20/16 02/20/16 00:35 01:00 03:52 WBC 10.9 H RBC 4.46 Hgb 12.7 Hct 39.0 MCV 87.3 MCHC 32.5 RDW 13.0 Plt Count 371 MPV 9.8 Neutrophils % 81.5 Lymphocytes % 10.9 D Monocytes % 6.5 Eosinophils % 0.6 Basophils % 0.5 ESR 43 H VBG pH 7.48 H POC VBG pCO2 33.3 L POC VBG pO2 67.0 H POC Glucometer 129 Creatine Kinase Troponin I C-Reactive Protein 02/20/16 06:18 WBC RBC Hgb Hct MCV MCHC RDW Plt Count MPV Neutrophils % Lymphocytes % Monocytes % Eosinophils % Basophils % ESR VBG pH POC VBG pCO2 POC VBG pO2 POC Glucometer 148 Creatine Kinase Troponin I C-Reactive Protein Problem List - Problems (1) Erythema nodosum Code(s): L52 - ERYTHEMA NODOSUM (2) Fever Code(s): R50.9 - FEVER, UNSPECIFIED Qualifiers: Fever type: unspecified Qualified Code(s): R50.9 - Fever, unspecified (3) Acute arthritis Code(s): M19.90 - UNSPECIFIED OSTEOARTHRITIS, UNSPECIFIED SITE (4) Lung abnormality Code(s): J98.4 - OTHER DISORDERS OF LUNG Assessment/Plan D/W with CTS -> can be discharged and will likely schedule for C Med on Wednesday No pulmonary contraindication for D/C Will need outpatient PFTs Dr Dimas
[2016-02-20 13:32] VITALS: BP 160/90; PULSE 88
== END 2016-02-20 14:30 | disposition home or self-care (01) | DRG 198 ==
LOC: JERFT 11:44 → JER 11:44 → JERBED 17:55 → J5S 23:09
PROVIDERS: ADMIT Family Medicine; ATTEND Family Medicine
DX: D86.9 Sarcoidosis, unspecified (principal); E11.9 Type 2 diabetes mellitus without complications; E78.00 Pure hypercholesterolemia, unspecified; I10 Essential (primary) hypertension; L52 Erythema nodosum; J45.909 Unspecified asthma, uncomplicated; M19.90 Unspecified osteoarthritis, unspecified site; R59.0 Localized enlarged lymph nodes; R91.8 Other nonspecific abnormal finding of lung field
CPT/HCPCS: 36415; 71020-TC; 71250-TC; 80053; 81003; 81015; 82550; 82803; 83036; 83605; 84484; 85025; 85610; 85651; 85730; 86038; 86140; 86480; 86618; 86850; 86900; 86901; 87040; 87086; 87254; 87804; 93005; 93010; 99282-25

== ENCOUNTER 2016-02-25 06:10 | Day surgery (SDC) | payer OTHER ==
[2016-02-21 11:16] VITALS: BMI 28.1
[2016-02-25] MEDS ORDERED: LIDOCAINE 1%/EPI 1:100000 (50 ML MULTI DOSE VIAL) ONE (07:47)
[2016-02-25] MEDS ORDERED: SODIUM CHLORIDE 0.9% P/F 10 ML VIAL IJ ONE (07:47)
[2016-02-25] MEDS ORDERED: ROCURONIUM BROMIDE 50 MG/5 ML VIAL ONE (07:48)
[2016-02-25] MEDS ORDERED: PROPOFOL 20 ML ONE (07:48)
[2016-02-25] MEDS ORDERED: MIDAZOLAM HCL 2 MG/2 ML SINGLE DOSE VIAL ONE ×2 (07:49)
[2016-02-25] MEDS ORDERED: ceFAZolin SODIUM 1 GM VIAL IVPB ONE (08:38)
[2016-02-25] MEDS ORDERED: ceFAZolin SODIUM 1 GM VIAL ONE (08:40)
[2016-02-25] MEDS ORDERED: LIDOCAINE 1%/EPI 1:100000 (50 ML MULTI DOSE VIAL) INF ONE ×2 (08:48)
[2016-02-25] MEDS ORDERED: ePHEDrine SULFATE 50 MG/1 ML AMPULE ONE (08:58)
[2016-02-25] MEDS ORDERED: DEXAMETHASONE SOD PHOSPHATE 4 MG/1 ML VIAL ONE (09:25)
[2016-02-25] MEDS ORDERED: GLYCOPYRROLATE 0.2 MG/1 ML VIAL ONE (09:25)
[2016-02-25] MEDS ORDERED: ONDANSETRON 4 MG/2 ML VIAL ONE (09:25)
[2016-02-25] MEDS ORDERED: NEOSTIGMINE METHYLSULFATE 0.5 MG/ML - 10 ML MDV ONE (09:32)
[2016-02-25] MEDS ORDERED: LIDOCAINE HCL/PF 2% SDV 5ML VIAL ONE ×2 (09:33)
[2016-02-25] MEDS ORDERED: oxyCODONE HCL 5 MG TABLET PO PRN (10:01)
[2016-02-25] MEDS ORDERED: ONDANSETRON 4 MG/2 ML VIAL IVPUSH PRN (10:01)
[2016-02-25] MEDS ORDERED: LACTATED RINGERS SOLUTION 1,000 ML IV SCH (10:15)
--- NOTE | 2016-02-25 10:15 | OP ---
Operative Note - Note: Operative Date: 02/25/16 Pre-Operative Diagnosis: Mediastinal adenopathy Operation: Bronchoscopy, cervical mediastinoscopy Findings: Bronchoscopy: normal airway Mediastinoscopy: nodule in midline over trachea, frozen suggests this is thyroid rest, right level 4 with lymphocytes, histiocytes on frozen. Post-Operative Diagnosis: Same as Pre-op Surgeon: Sravan Aquino Anesthesiologist/MEAT PASSER: Pratibha Pascual Anesthesia: General Specimens Removed: thyroid nodule in midline over airway, right level 4 Estimated Blood Loss (mls): 10 Drains & Tubes with Location: na
[2016-02-25 11:05] VITALS: TEMP 98
[2016-02-25 11:27] VITALS: PULSE 97
[2016-02-25 13:38] VITALS: BP 141/92
--- NOTE | 2016-02-25 13:42 | OP ---
- Note: Patient Name: Catie Wheeler MR#: [id number] Procedure Date: 02/25/2016 Preoperative Diagnosis: Mediastinal adenopathy Postoperative Diagnosis: Same Procedure: Flexible bronchoscopy, cervical mediastinoscopy Indication: as above Surgeon(s): Dr. Sravan Aquino Anesthesia: General Endotracheal Wound Classification: Clean Antibiotic Prophylaxis: n/a Findings: normal airway, firm nodule over midline cervical airway; frozen consistent with thyroid tissue; level 4 node with lymphocytes and histiocytes Specimens: cervical nodule; level 4 lymph node to frozen and microbiology and bronchial washings to microbiology. Complications: none Drains / Tubes / Catheters: n/a Hardware / Implants: n/a Blood / Fluid Losses: minimal Blood / Fluids Administered: per anesthesia Post-Operative Condition: stable, extubated to PACU Indications: This patient is a 70 year-old female who presented with dyspnea, fever, and erythema nodosum. She was evaluated by Dr. Roberts, Dr. Avina, and Dr. Yarbrough after a CT showed mediastinal adenopathy and multiple lung nodules. Dr. Yarbrough and Dr. Avina thought the clinical picture suggested sarcoid but that malignancy should be ruled out and recommended mediastinoscopy. For this, reason, I offered her a bronchoscopy and cervical mediastinoscopy. The patient understood the risks, benefits, and alternatives and gave an informed consent. Details of Procedure: The patient was taken into the operating room and placed supine on the table. Sequential compression devices were placed. Intravenous sedation was given and she was then intubated with a single-lumen tube. Preoperative antibiotics were given. Intraoperative monitoring was performed including pulse oximetry and blood pressure monitoring. A bronchoscopy was performed and a bronchoalveolar lavage was sent for culture. The patient was then placed supine with a shoulder roll and her neck in extension. Her neck and chest were prepared and draped in standard surgical fashion. We made a small cervical incision after injecting with local anesthesia, and cut down to the airway. There was a mobile nodule in the midline that was resected. It was sent for frozen and appeared to be thyroid -related. We then continued dissection and the scope was inserted after bluntly creating a plane with finger dissection. We then advanced to the right level 4 and sampled a large anthracotic lymph node. Cultures and tissue were sent to microbiology and pathology. Hemostasis was obtained with surgicell and the cautery. I then closed the tissue in layers with absorbable sutures. The patient was then awakened and extubated. She tolerated the procedure well and was taken to the PACU.
--- NOTE | 2016-02-26 15:31 | PATH ---
Surgical Pathology Report Patient Name: VIANEY SHIPMAN [facility]. Rec. #: [id number] /Age/Gender: 1945 (Age: 70) / F Account: [id number] Location: [facility] SURGICAL Taken: 02/25/2016 Received: 02/25/2016 Reported: 02/26/2016 Physicians: Sravan Aquino M.D. Specimen(s) Received A: CERVICAL LYMPH NODE FS B: RIGHT LEVEL 4 MEDISTINAL LYMPH NODE C: CERVICAL LYMPH NODE FS D: RIGHT LEVEL 4 MEDIALSTINAL LYMPH NODE Clinical History Mediastinal adenopathy Intraoperative Consult Diagnosis A. Cervical lymph node: [place] appearing thyroid tissue. 1TP, [address] Rodney, discussed with Dr. Aquino, on 02/25/16 at 9:22 AM. B. Right level IV mediastinal lymph node: Lymph node with histiocyte collections consistent with granulomatous inflammation. No overt necrosis seen. 1TP, 1FS. Per Dr. Rodney, discussed with Dr. Aquino, on 02/25/16 at 9:45 AM. Final Diagnosis A. CERVICAL LYMPH NODE, BIOPSY: BLAND APPEARING THYROID TISSUE WITH NODULAR HYPERPLASIA (SEE COMMENT). NO LYMPHOID TISSUE IDENTIFIED. B. MEDIASTINAL LYMPH NODE, RIGHT LEVEL 4, BIOPSY: BENIGN LYMPH NODE WITH GRANULOMATOUS INFLAMMATION WITH FOCAL NECROSIS (SEE COMMENT). NO ACID-FAST BACILLI IDENTIFIED AFB STAIN. NO FUNGAL ORGANISMS IDENTIFIED WITH GMS STAIN. C. CERVICAL LYMPH NODE, LYMPHADENECTOMY: BLAND APPEARING THYROID TISSUE WITH NODULAR HYPERPLASIA (SEE COMMENT). NO LYMPHOID TISSUE IDENTIFIED. D. MEDIASTINAL LYMPH NODE, RIGHT LEVEL 4, LYMPHADENECTOMY: BENIGN LYMPH NODE WITH GRANULOMATOUS INFLAMMATION WITH FOCAL NECROSIS (SEE COMMENT). NO ACID-FAST BACILLI IDENTIFIED AFB STAIN. NO FUNGAL ORGANISMS IDENTIFIED WITH GMS STAIN. Comment: The findings in parts A and C likely represents ectopic thyroid tissue (thyroid rests) in the neck midline. Hico appearing thyroid cancer metastases, while possible, are less likely. Clinical and imaging correlations are suggested. Granulomatous inflammation may be seen in systemic diseases, such as sarcoid, collagen-vascular diseases and infections. Clinical and serological correlations along with correlations with microbiology studies for parts B and D are suggested. Flow Cytometry on part B is pending; results will be reported in an addendum. Electronically Signed Anthony Rodney M.D. Addendum Reported: 02/27/2016 Addendum Diagnosis Flow Cytometry performed and interpreted on the concurrent specimen at [place], [place] ([id number]) showed a specimen with decreased viability with no evidence of B- or T-cell proliferative disorders: The B-cells (14% of total) were polytypic. The T-cells (76% of total) showed no lang T-cell antigenic deletion. The CD4:CD8 ratio was 5.6:1. Anthony Rodney M.D. Gross Description A. Received fresh, labeled "cervical lymph node" is a 1.2 x 0.8 x 0.3 cm mcclain-pink portion of soft tissue. The specimen is bisected and reveals a 0.7 cm in greatest dimension hard nodule. A touch prep is performed and half of the specimen is submitted for frozen section. The specimen is entirely submitted in 2 cassettes as follows: 1-frozen section residue; 2-remaining half of specimen. B. Received fresh, labeled "right level IV mediastinal lymph node" is a 0.8 x 0.3 x 0.2 cm mcclain-black, irregular soft tissue fragment. A touch prep is performed and the larger portion is submitted for frozen section. Half of the smaller portion is placed in RPMI solution and sent for flow cytometry. The specimen is entirely submitted in 2 cassettes as follows: 1-frozen section residue; 2-remainder of specimen. C. Received in formalin, labeled "cervical lymph node" is a 2.0 x 1.4 x 0.4 cm aggregate of mcclain-pink soft tissue fragments. The specimen is submitted in toto in one cassette. D. Received in formalin, labeled "right level IV mediastinal lymph node" are 5 banks-black, irregular soft tissue fragments ranging from 0.4-0.8 cm in greatest dimension. The specimens are submitted in toto in one cassette. 02/25/2016 saudi02/25/2016
== END 2016-02-25 13:44 | disposition home or self-care (01) ==
LOC: JASU-SURG 06:10
PROVIDERS: ATTEND Surgery
PROC: 07B10ZX Excision of Right Neck Lymphatic, Open Approach, Diagnostic (ICD-10-PCS; 2016-02-25)
PROC: 0WBC4ZX Excision of Mediastinum, Percutaneous Endoscopic Approach, Diagnostic (ICD-10-PCS; principal; 2016-02-25 08:00)
PROC: 0B938ZX Drainage of Right Main Bronchus, Via Natural or Artificial Opening Endoscopic, Diagnostic (ICD-10-PCS; 2016-02-25 08:00)
DX: R59.0 Localized enlarged lymph nodes (principal)
CPT/HCPCS: 71010-TC; 87070; 87075; 87102; 87116; 87205; 87206; 87210; 88305-TC; 88312-TC; 88331-TC; 88333; 94760

== ENCOUNTER 2023-12-06 10:06 | Emergency (ER) | payer OTHER ==
[2023-12-06 10:25] VITALS: TEMP 98.8; BMI 28.1
[2023-12-06 11:08] LABS: HEMATOCRIT 40.5 % (32.4-45.2); HEMOGLOBIN 13.7 GM/dL (10.7-15.3); MCH 29.2 pg (25.7-33.7); MCHC 33.8 g/dl (32.0-36.0); MEAN CELL VOLUME 86.2 fl (80-96); MEAN PLT VOLUME 8.4 fl (7.5-11.1); PLATELET COUNT 308 10^3/uL (134-434); RDW 13.3 % (11.6-15.6); WHITE BLOOD COUNT 7.5 K/mm3 (4.0-10.0)
[2023-12-06 11:25] LABS: CHLORIDE 99 mmol/L (98-107); SODIUM 131 mmol/L (136-145)
[2023-12-06 11:27] LABS: ALBUMIN 3.1 g/dl (3.4-5.0); BLOOD UREA NITROGEN 9.3 mg/dL (7-18); CALCIUM 9.2 mg/dL (8.5-10.1); CO2 28 mmol/L (21-32)
[2023-12-06 11:28] LABS: GLUCOSE,RANDOM 149 mg/dL (74-106)
[2023-12-06] MEDS ORDERED: ACETAMINOPHEN INJECTION 100 ML ONE (11:28)
[2023-12-06] MEDS ORDERED: MAG HYDROX/AL HYDROX/SIMETH 30 ML UNIT-DOSE CUP ONE (11:28)
[2023-12-06] MEDS ORDERED: FAMOTIDINE 10 MG TABLET ONE (11:28)
[2023-12-06 11:30] LABS: SGOT/AST 88 U/L (15-37)
[2023-12-06 11:31] LABS: CREATININE 0.7 mg/dL (0.55-1.3)
[2023-12-06 11:32] LABS: ANION GAP 4 mmol/L (4-13); BILIRUBIN,TOTAL 0.9 mg/dL (0.2-1); SGPT/ALT 53 U/L (13-61); TOT PROT 8.4 g/dl (6.4-8.2)
[2023-12-06 11:33] LABS: ALK PHOS 124 U/L (45-117)
[2023-12-06] MEDS: FAMOTIDINE 10 MG TABLET PO ONE (11:40)
[2023-12-06] MEDS: MAG HYDROX/AL HYDROX/SIMETH 30 ML UNIT-DOSE CUP PO ONE (11:40)
[2023-12-06] MEDS: ACETAMINOPHEN 1000 MG/100 ML BAG IVPB ONE (11:41)
[2023-12-06 12:38] LABS: POTASSIUM 3.8 mmol/L (3.5-5.1)
[2023-12-06 12:40] LABS: BLOOD UREA NITROGEN 9.4 mg/dL (7-18)
[2023-12-06 12:41] LABS: CALCIUM 9.2 mg/dL (8.5-10.1)
[2023-12-06 12:43] LABS: CREATININE 0.6 mg/dL (0.55-1.3)
[2023-12-06 12:58] LABS: HIV INTERPRETATION NEGATIVE (NEGATIVE)
[2023-12-06 14:45] VITALS: BP 144/84; PULSE 86; RESP 16
== END 2023-12-06 14:46 | disposition home or self-care (01) ==
LOC: JER 10:06
PROC: 3E033NZ Introduction of Analgesics, Hypnotics, Sedatives into Peripheral Vein, Percutaneous Approach (ICD-10-PCS; principal; 2023-12-06)
DX: M54.6 Pain in thoracic spine (principal); R07.89 Other chest pain; Z20.822 Contact with and (suspected) exposure to COVID-19
CPT/HCPCS: 0241U-QW; 36415; 71045-TC-FY; 71275-TC; 74174-TC; 80048; 80053; 83690; 84484; 85027; 86803; 87389; 93005; 93010; 96374; 99285-25; J0131; Q9967